=== PATIENT | female | born 1950 ===

== ENCOUNTER 2019-01-03 15:27 | Emergency (ER) | payer MEDICARE, OTHER ==
--- NOTE | 2019-01-03 15:47 | UC ---
Lower Extremity/Ankle HPI - HPI Summary HPI Summary: 68-year-old female presents with complaints of an infection underneath her toenail of the left great toe. States that she removed nail welsh that had been on her toes for approximately one month yesterday and noticed discoloration of the toenail with some mixture of blood and pus draining from under the toenail. Denies injury, fever, chills, pain, redness, swelling of the toe, numbness or tingling. - History of Current Complaint Chief Complaint: UCSkin Stated Complaint: TOE COMPLAINT Time Seen by Provider: 01/03/19 15:38 Hx Obtained From: Patient Pain Intensity: 5 - Allergies/Home Medications Allergies/Adverse Reactions: Allergies Allergy/AdvReac Type Severity Reaction Status Date / Time No Known Allergies Allergy Verified 01/03/19 15:39 Home Medications: Home Medications Aspirin 81 mg CHEW TAB* [Aspirin Low Dose TAB*] 81 mg PO DAILY 01/03/19 [ History Confirmed 01/03/19] Atenolol/Chlorthalidone [Atenolol/Chlorthalidone 50-25 mg-] 1 tab PO DAILY 01/03 [History Confirmed 01/03/19] PMH/Surg Hx/FS Hx/Imm Hx Cardiovascular History: Hypertension - Surgical History Surgical History: Yes Surgery Procedure, Year, and Place: orif right wrist - Family History Known Family History: Positive: Non-Contributory - Social History Occupation: Retired Lives: With Family Alcohol Use: Weekly Substance Use Type: None Smoking Status (MU): Never Smoked Tobacco Review of Systems All Other Systems Reviewed And Are Negative: Yes Constitutional: Negative: Fever, Chills Skin: Positive: Other - See HPI Respiratory: Positive: Negative Cardiovascular: Positive: Negative Gastrointestinal: Positive: Negative Genitourinary: Positive: Negative Musculoskeletal: Negative: Arthralgia, Decreased ROM, Edema Neurological: Positive: Negative Is Patient Immunocompromised?: No Physical Exam - Summary Physical Exam Summary: GENERAL APPEARANCE: Well developed, well nourished, alert and cooperative, and appears to be in no acute distress. CARDIAC: Normal S1 and S2. No S3, S4 or murmurs. Rhythm is regular. There is no peripheral edema, cyanosis or pallor. Extremities are warm and well perfused. Capillary refill is less than 2 seconds. Peripheral pulses intact. LUNGS: Clear to auscultation without rales, rhonchi, wheezing or diminished breath sounds. ABDOMEN: Positive bowel sounds. Soft, nondistended, nontender. No guarding or rebound. No masses or hepatosplenomegally. MUSKULOSKELETAL: ROM intact to all extremities. No joint erythema or tenderness. Normal muscular development. Normal gait. EXTREMITIES: Dull bates discoloration of the toenail of the left great toe with some partial oncholysis and purulent drainage. There was full range of motion to the toe. No erythema, edema, or joint tenderness. SKIN: Skin normal color, texture and turgor. Triage Information Reviewed: Yes Vital Signs: Initial Vital Signs Temp 98.4 F 01/03/19 15:34 Pulse 66 01/03/19 15:34 Resp 16 01/03/19 15:34 BP 143/51 01/03/19 15:34 Pulse Ox 100 01/03/19 15:34 Vital Signs Reviewed: Yes Lower Extremity Course/Dx - Course Course Of Treatment: 68-year-old female presents with complaints of an infection underneath her toenail of the left great toe. States that she removed nail welsh that had been on her toes for approximately one month yesterday and noticed discoloration of the toenail with some mixture of blood and pus draining from under the toenail. Denies injury, fever, chills, pain, redness, swelling of the toe, numbness or tingling. Afebrile. Hypertensive otherwise vital signs stable. Patient had a dull bates discoloration of the toenail of the left great toe with some partial oncholysis and purulent drainage. There was full range of motion to the toe. No erythema, edema, or joint tenderness. Remainder of exam was unremarkable. A culture of the drainage was taken and is pending. Discussed with the patient that based on the appearance of the drainage I suspect that she may have a bacterial infection underneath toenail however I cannot rule out the possibility of a fungal infection at this time. Patient is visiting the area from [place] and will be in the area for the next 3 weeks. She is to follow-up with podiatry locally in 5-7 days if her symptoms are not improving. Anticipatory guidance and warning symptoms were reviewed with the patient. Verbalizes understanding and agrees with POC> - Differential Dx/Diagnosis Provider Diagnosis: Subungual infection of toe of left foot Discharge - Sign-Out/Discharge Documenting (check all that apply): Patient Departure All imaging exams completed and their final reports reviewed: No Studies - Discharge Plan Condition: Stable Disposition: HOME Prescriptions: Cephalexin CAP* [Keflex 500 CAP*] 500 mg PO TID #30 cap Referrals: Heena Espinoza MD [Primary Care Provider] - Katie Matos DPM [Doctor of Podiatric Medicine] - 5 Days (Call for appointment is no improvement in symptoms.) Additional Instructions: I suspect that with your report of pus draining from underneath your toenail that you have a bacterial infection causing her symptoms. I cannot however rule out the possibility of a fungal infection. We will place you on an antibiotic to try to treat the infection at this time. A culture of the discharge from underneath her toenail has been sent to the lab. We will contact you if there is any need to change your plan of care. Take cephalexin 500 mg 1 capsule 3 times a day for 10 days. Follow-up with podiatry in 5-7 days if there is no improvement in your symptoms. Seek immediate medical attention in the emergency room if you have fever greater than 100.5 F, have redness that spreads, swelling of the toe, severe pain, or any worsening of symptoms. - Billing Disposition and Condition Condition: STABLE Disposition: Home - Attestation Statements Provider Attestation: Per institutional requirements, I have reviewed the chart, however, I was not consulted specifically or made aware of this patient by the midlevel provider. I did not personally evaluate, interact with , or disposition this patient.
--- NOTE | 2019-01-04 07:13 | UC ---
- Progress Note Progress Note: Chart reviewed I and D performed and discharged on Keflex Negative MRSA PCR No change in plan Course/Dx - Diagnoses Provider Diagnoses: Subungual infection of toe of left foot Discharge - Sign-Out/Discharge Documenting (check all that apply): Post-Discharge Follow Up All imaging exams completed and their final reports reviewed: No Studies - Discharge Plan Condition: Stable Disposition: HOME Prescriptions: Cephalexin CAP* [Keflex 500 CAP*] 500 mg PO TID #30 cap Referrals: Heena Espinoza MD [Primary Care Provider] - Katie Matos DPM [Doctor of Podiatric Medicine] - 5 Days (Call for appointment is no improvement in symptoms.) Additional Instructions: I suspect that with your report of pus draining from underneath your toenail that you have a bacterial infection causing her symptoms. I cannot however rule out the possibility of a fungal infection. We will place you on an antibiotic to try to treat the infection at this time. A culture of the discharge from underneath her toenail has been sent to the lab. We will contact you if there is any need to change your plan of care. Take cephalexin 500 mg 1 capsule 3 times a day for 10 days. Follow-up with podiatry in 5-7 days if there is no improvement in your symptoms. Seek immediate medical attention in the emergency room if you have fever greater than 100.5 F, have redness that spreads, swelling of the toe, severe pain, or any worsening of symptoms. - Billing Disposition and Condition Condition: STABLE Disposition: Home
== END 2019-01-03 16:24 | disposition home or self-care (01) ==
LOC: UCEAST 15:27
DX: L03.032 Cellulitis of left toe (principal); I10 Essential (primary) hypertension; Z79.82 Long term (current) use of aspirin
CPT/HCPCS: 87070; 87077; 87186; 87205; 87640; 87641; 99202; G0463